=== PATIENT | female | born 1995 | race African-American/Black ===

== ENCOUNTER 2021-09-08 09:06 | Emergency (ER) | payer MEDICAID ==
[~2021-09-08] VITALS: Ht 157.5 cm; Wt 73.0 kg
[2021-09-08] MEDS ORDERED: IPRATROPIUM BROMIDE (0.02%) 0.5MG/2.5ML NEB HHN STA (09:36)
[2021-09-08] MEDS ORDERED: ALBUTEROL (0.083%) 2.5MG/3ML NEB HHN STA (09:36)
[2021-09-08] MEDS ORDERED: PREDNISONE 20MG TABLET PO ONE (09:45)
[2021-09-08] MEDS ORDERED: P20 MT (11:18)
[2021-09-08] MEDS ORDERED: ALBU6.7H9 INH (11:18)
[2021-09-08] MEDS ORDERED: FLOV22 IH (11:18)
[2021-09-08 11:29] VITALS: BP 130/83
== END 2021-09-08 11:35 | disposition home or self-care (01) ==
LOC: ER 09:06
DX: O99.513 Diseases of the respiratory system complicating pregnancy, third trimester (principal); J45.901 Unspecified asthma with (acute) exacerbation; Z3A.31 31 weeks gestation of pregnancy
CPT/HCPCS: 94644; 99285; J7512; Z7610

== ENCOUNTER 2021-11-16 00:34 | Emergency (ER) | payer MEDICAID ==
[~2021-11-16] VITALS: Ht 157.5 cm; Wt 66.5 kg
[~2021-11-16 00:34] MED LIST: ALBU6.7H9 INH; FLOV22 IH; P20 MT
[2021-11-16 00:42] VITALS: BP 143/81
[2021-11-16] MEDS ORDERED: PREDNISONE 20MG TABLET PO ONE (01:00)
[2021-11-16] MEDS ORDERED: ALBUTEROL (0.083%) 2.5MG/3ML NEB HHN ONE ×2 (01:00→02:00)
[2021-11-16] MEDS ORDERED: P20 MT (01:32)
[2021-11-16] MEDS ORDERED: ALBU18HF2 IH (01:32)
== END 2021-11-16 03:00 | disposition left against medical advice (07) ==
LOC: ER 00:34
DX: J45.901 Unspecified asthma with (acute) exacerbation (principal); Z79.899 Other long term (current) drug therapy
CPT/HCPCS: 99283; J7512

== ENCOUNTER 2022-06-29 00:07 | Emergency (ER) | payer MEDICAID ==
[~2022-06-29] VITALS: Ht 157.5 cm; Wt 74.2 kg
[~2022-06-29 00:07] MED LIST changes: +ALBU18HF2 IH; +ALBU6.7H3 INH; -ALBU6.7H9 INH
[2022-06-29 00:08] VITALS: BP 132/93
== END 2022-06-29 03:07 | disposition left against medical advice (07) ==
LOC: ER 00:07
DX: Z53.21 Procedure and treatment not carried out due to patient leaving prior to being seen by health care provider (principal)

== ENCOUNTER 2022-07-07 19:51 | Emergency (ER) | payer MEDICAID ==
[~2022-07-07] VITALS: Ht 157.5 cm; Wt 73.0 kg
[2022-07-07 20:01] VITALS: BP 122/83
== END 2022-07-08 02:28 | disposition left against medical advice (07) ==
LOC: ER 19:51
DX: Z53.21 Procedure and treatment not carried out due to patient leaving prior to being seen by health care provider (principal)